=== PATIENT | male | born 1955 | race Caucasian/White ===

== ENCOUNTER → 2016-09-23 | Outpatient (CLI) | payer MEDICARE, OTHER ==
[~2016-09-23] MED LIST: /PANT40TA; /PANT40TA OR; /THIA10TA; ASPIRIN; BENA; BENADRYL TOP; BISA10SU2 PO; BISA10SU2 RE; COLA100C2; COLA100C2 OR; FOLI1TAB; FOLI1TAB OR; GABA600T3 OR; LEXAPRO PO; LIDO5DIS TD; MILKSUS OR; MULTIVIT; MULTIVIT OR; MULTIVIT PO; Metamucil PO; NICO21DI4; NICO21DI4 TD; PAIN325T OR; PERC5TAB8; PERC5TAB8 OR; RYZOLT PO; SENN8.6T5; SENNA-GEN OR; THIA100T OR; TRAM50TA2 OR
--- NOTE | 2016-09-24 02:41 | ECWPNPC ---
PATIENT NAME: DEMETRI FINLEY : 1955 GENDER: MALE VISIT DATE: 09/23/2016 DISCHARGE DATE: 09/23/16 1057 VISIT LOCKED DATE TIME: PHYSICIAN: LOU ROMERO RESOURCE: LOU ROMERO REASON FOR APPOINTMENT 1. FOLLOWUP HISTORY OF PRESENT ILLNESS HISTORY OF PRESENT ILLNESS: HERE FOR F/U MANAGEMENT OF CHRONIC LOW BACK PAIN.STATES PAIN HAS GRADUALLY RETURNED TO BASELINE.RATING PAIN VAS 4/10.DESCRIBES PAIN CONSTANT ACHING AND STABBING.HAS RESPONDED TO LUMBAR FACET THERAPEUTIC BLOCK IN PAST. FALL RISK SCREENING: SCREENING :NO FALLS IN THE PAST YEAR CURRENT MEDICATIONS TAKING MULTIVITAMINS CAPSULE 1 ORALLY ONCE A DAY, NOTES: YESTERDAY TAKING VITAMIN D (ERGOCALCIFEROL) 82413 UNIT CAPSULE 1 CAPSULE ORALLY ONCE EVERY 2 WEEKS TAKING GABAPENTIN 800 MG TABLET 1 TABLET ORALLY THREE TIMES A DAY TAKING PANTOPRAZOLE SODIUM 40 MG TABLET DELAYED RELEASE 1 TABLET ORALLY ONCE A DAY TAKING ATORVASTATIN CALCIUM 10 MG TABLET 1 TABLET ORALLY ONCE A DAY TAKING VIAGRA 100 MG TABLET 1/2-1 TABLET NEEDED ORALLY ONCE A DAY TAKING TRAMADOL HCL ER 200 MG TABLET EXTENDED RELEASE 24 HOUR 1 TABLET ORALLY ONCE A DAY MDD #1 CODE D MEDICATION LIST REVIEWED AND RECONCILED WITH THE PATIENT PAST MEDICAL HISTORY GUILLIAN BARRE VITAMIN D DEFICIENCY HYPERLIPIDEMIA DDD- LUMBAR WITH MILD DISC HERNIATION DEPRESSION CARPAL TUNNEL ALLERGIES N.K.D.A. SOCIAL HISTORY GENERAL: TOBACCO USE ARE YOU A:NONSMOKER LEARNING BARRIERS / SPECIAL NEEDS ORIENTED TO PLAN OF CARE: PATIENT, PAIN MANAGEMENT PATIENT, ORIENTED TO PLAN OF CARE: PATIENT, PAIN MANAGEMENT PATIENT. NEW PATIENT PAIN DIARY TODAY'S VISITNOTES FROM 0-10, WHAT LEVEL IS YOUR PAIN TODAY?0 PAIN CLINIC PFS, CLERGY, PUBLIC HEALTH REFERRALS PFS REFERRAL NEEDED?NO CLERGY REFERRAL NEEDED?NO PUBLIC HEALTH REFERRAL NEEDED?NO WAS THE PROVIDER NOTIFIED OF ANY PERTINENT INFO?NO PFS REFERRAL NEEDED?NO CLERGY REFERRAL NEEDED?NO PUBLIC HEALTH REFERRAL NEEDED?NO WAS THE PROVIDER NOTIFIED OF ANY PERTINENT INFO?NO REVIEW OF SYSTEMS CONSTITUTIONAL: ANY CHANGE IN YOUR MEDICAL CONDITION? NO . CHILLS NO . FEVER NO . INFECTION: DO YOU HAVE NEW INFECTIONS? NO . DO YOU HAVE HISTORY OF MRSA? NO . MUSCULOSKELETAL: ANY NEW PATTERNS OF PAIN OR NUMBNESS? YES PT HAD A LUMBAR FACET BLOCK 04/04/17, REPORTS HE HAD GOOD PAIN CONTROL WITH THIS, BUT THE PAIN HAS BEEN INCREASING GRADUALLY AND IS PRETTY CLOSE TO BASELINE, BUT STILL IS A A LITTLE BETTER THAN PRIOR TO PROCEDURE. HE ALSO REPORTS SOME NUMBNESS IN RIGHT LEG THAT OCCURS AFTER SITTING, THIS IS NEW OVER THE PAST SIX MONTHS. . GASTROENTEROLOGY: ANY NEW CHANGE IN BOWEL CONTROL? NO . GENITOURINARY: ANY NEW CHANGE IN BLADDER CONTROL? NO . IS THERE A CHANCE YOU COULD BE ? NO . HEMATOLOGY/LYMPH: DO YOU TAKE ANY BLOOD THINNERS? (FOR EXAMPLE- COUMADIN, PLAVIX, AGGRENOX, PLATEL, PRADAXA, OR XARELTO) NO . WHEN WAS YOUR LAST DOSE? DATE: TIME: . NEUROLOGY: HAVE YOU FALLEN IN THE PAST 6 MONTHS? NO . ANY NEW EXTREMITY NUMBNESS OR WEAKNESS? NO . CARDIOLOGY: DO YOU HAVE A PACEMAKER OR DEFIBRILLATOR? NO . RESPIRATORY: HAVE YOU BEEN SICK IN THE PAST WEEK? NO . FEVER NO . FLU LIKE SYMPTOMS? NO . COUGH NO . INTEGUMENTARY: DO YOU HAVE ANY RASHES OR OPEN SORES? NO . ALLERGIC/IMMUNO: ARE YOU ALLERGIC TO SHELLFISH OR IV DYE? NO . ANY NEW ALLERGIES? NO . PSYCHIATRIC: DO YOU HAVE THOUGHTS OF HURTING YOURSELF OR SOMEONE ELSE? NO . ARE YOU ABUSED, NEGLECTED, OR IN AN UNSAFE ENVIRONMENT? NO . ENDOCRINOLOGY: ARE YOU DIABETIC? NO . OTHER: DO YOU NEED ANY PRESCRIPTIONS? NO . IF YES, PLEASE LIST: ____ . ANY NEW PROBLEMS WITH YOUR MEDICATIONS? NO . WHEN DID YOU LAST EAT? ____ . WHEN DID YOU LAST DRINK? ____ . WHAT DID YOU LAST DRINK? ____ . NAME OF PERSON DRIVING YOU HOME? ____ . DO YOU HAVE ANY OTHER QUESTIONS OR CONCERNS NO . REVIEWED BY: PROVIDER: LOU LORENZ . VITAL SIGNS WT 221.6 LBS, HT 6'1", BMI 29.23 INDEX, BP 131/75 MM HG, HR 71 /MIN, RR 16 /MIN, TEMP 98.3 F, OXYGEN SAT % 95%, SAFE IN ENV? (Y/N) YES, NA INITIALS MD 09:59, REVIEWED BY: WILBUR. EXAMINATION LUMBAR SPINE/LOWER BACK: LOWER BACK:ROJM L/S SPINE FULL WITHOUT INCREASE IN PAIN. PALPATION:VERTEBRAL SPINE TENDERNESS.SPECIFIC TENDERNESS OVER LUMBAR FACET REGION BILAT.. MOTOR SYSTEM:5/5 BLE. SENSORY EXAM:NORMAL BILATERAL LE. GAIT:NORMAL. ASSESSMENTS CHRONIC BILATERAL LOW BACK PAIN WITHOUT SCIATICA - M54.5 (PRIMARY) LUMBAR DEGENERATIVE DISC DISEASE - M51.36 LUMBAR FACET ARTHROPATHY - M12.88 TREATMENT CHRONIC BILATERAL LOW BACK PAIN WITHOUT SCIATICA LUMBAR FACET LOU ANDERSEN 09/23/2016 10:41:14 AM > BILAT. L4/5-L5/S1 THERAPEUTIC FACET BLOCK NOTES: # 226 TOBACCO USE SCREENING/INTERVENTION: PATIENT CURRENTLY USED TOBACCO. WAS OFFERED SMOKING CESSATION FOR GUIDANCE IN QUITTING THROUGH THE [facility] QUITS PROGRAM AND THE [facility] CESSATION PROGRAM. , #128 - SCREENING BMI AND F/U PLAN IN : BMI ABOVE NORMAL TODAY. DISCUSSED WITH PATIENT NUTRITIONAL FOOD CHOICES TO ASSIST WITH WEIGHT LOSS. RECCOMMENDED REDUCING SALT, SUGAR, SODA INTAKE. RECOMMEND INCREASE ACTIVITY TO INCLUDE WALKING ON A REGULAR BASIS. PROFESSIONAL NUTRITIONAL NUTRITIONAL GUIDANCE WAS OFFERED AND WAS DECLINED. , PATIENT WAS ADVISED TO START A WALKING PROGRAM TO STRENGTHEN LUMBAR PARASPINAL MUSCLES AND IMPROVE MOBILITY. THEY WERE ADVISED THAT THIS WILL IMPROVE WEIGHT LOSS AND ALSO DEPRESSION/FIBROMYALGIA SYMPTOMS. ADVISED TO WALK 10 MINUTES EVERY OTHER DAY ON A FLAT SURFACE. EMPHASIZED THE IMPORTANCE OF DOING THIS CONSISTANTLY AND NOT SPORATICALLY TO AVOID INJURY. STRONG ADVISED NOT TO DO MORE THAN 10 MINUTES EVERY OTHER DSY FOR THE FIRST 4 WEEKS. LUMBAR FACET ARTHROPATHY LUMBAR FACET LEONORHEATHERHALLEYN 09/23/2016 10:41:14 AM > BILAT. L4/5-L5/S1 THERAPEUTIC FACET BLOCK PROCEDURE CODES FA211 ESTABILISHED PATIENT [facility] FACILITY CHARGE G8783 BP SCR PRFRM RCMDD DEFIND SCR INTVL G8730 PAIN ASSESS POS TOOL F/U PLAN DOC 3016F PT SCRND [place]HL[place] USE 0518F FALL PLAN OF CARE DOCD G8427 DOC MEDS VERIFIED W/PT OR RE G8417 BMI >=30 CALCUATE W/FOLLOWUP 3288F FALL RISK ASSESSMENT DOCD 4004F PT TOBACCO SCREEN RCVD TLK DISPOSITION & COMMUNICATION FOLLOW UP 2WK POST (REASON: BILAT L4/5-L5/S1 THERAPEUTIC FACET BLOCK) ELECTRONICALLY SIGNED BY KELECHI HANSEN ON 09/23/2016 AT 01:10 PM EDT DISCLAIMER : THIS IS A VISIT SUMMARY EXTRACTED FROM THE [employer] CHART. IT IS NOT A COPY OF THE [employer] PROGRESS NOTE. MTDD
== END ==
LOC: M PAIN 10:00
PROVIDERS: ATTEND Nurse Practitioner Family
DX: M54.5 Low back pain (principal); M51.36 Other intervertebral disc degeneration, lumbar region; M12.88 Other specific arthropathies, not elsewhere classified, other specified site; G89.29 Other chronic pain; Z79.891 Long term (current) use of opiate analgesic; E78.5 Hyperlipidemia, unspecified; K21.9 Gastro-esophageal reflux disease without esophagitis; E55.9 Vitamin D deficiency, unspecified

== ENCOUNTER → 2016-10-11 | Outpatient (CLI) | payer MEDICARE, OTHER ==
[~2016-10-11] MED LIST changes: +BUPIVACAINE HCL 0.25% 30 ML VIAL As Ordered ONE; +ISOVUE-M 300 61% 15ML VIAL (Q9967) As Ordered ONE; +LIDOCAINE 1% SDV INJ 30 ML VIAL As Ordered ONE; +TRIAMCINOLONE ACETONIDE SUSP 40 MG/ML VIAL (J3301) As Ordered ONE
--- NOTE | 2016-10-11 19:36 | REP ---
Partial lumbar spine series: Two views: History: Bilateral facet block injection for pain. 24 seconds of fluoroscopy time is reported. Findings: A sequence of two last image hold fluoroscopic spot radiographs of the lumbar spine document various needle positions and contrast injections associated with facet injection procedure. Signed by Berny Haney MD 10/12/2016 07:51 A
--- NOTE | 2016-10-23 00:09 | ECWPNPC ---
PATIENT NAME: DEMETRI FINLEY : 1955 GENDER: MALE VISIT DATE: 10/11/2016 DISCHARGE DATE: 10/11/16 1348 VISIT LOCKED DATE TIME: PHYSICIAN: ANAHY HANKINS RESOURCE: ANAHY HANKINS REASON FOR APPOINTMENT 1. LUMBAR FACET THERAPEUTIC HISTORY OF PRESENT ILLNESS HISTORY OF PRESENT ILLNESS: PAIN THE PATIENT DESCRIBES THE PAIN... FALL RISK SCREENING: SCREENING :NO FALLS IN THE PAST YEAR CURRENT MEDICATIONS TAKING MULTIVITAMINS CAPSULE 1 ORALLY ONCE A DAY, NOTES: 10/10/16@0700 TAKING VITAMIN D (ERGOCALCIFEROL) 79436 UNIT CAPSULE 1 CAPSULE ORALLY ONCE EVERY 2 WEEKS, NOTES: A WEEK AGO TAKING GABAPENTIN 800 MG TABLET 1 TABLET ORALLY THREE TIMES A DAY, NOTES: 10/11/16@0630 TAKING PANTOPRAZOLE SODIUM 40 MG TABLET DELAYED RELEASE 1 TABLET ORALLY ONCE A DAY, NOTES: 10/10/16@0700 TAKING ATORVASTATIN CALCIUM 10 MG TABLET 1 TABLET ORALLY ONCE A DAY, NOTES: @699 TAKING VIAGRA 100 MG TABLET 1/2-1 TABLET NEEDED ORALLY ONCE A DAY, NOTES: HASNT USED FOR AWHILE TAKING TRAMADOL HCL ER 200 MG TABLET EXTENDED RELEASE 24 HOUR 1 TABLET ORALLY ONCE A DAY MDD #1 CODE D, NOTES: 10/10/16@1999 MEDICATION LIST REVIEWED AND RECONCILED WITH THE PATIENT PAST MEDICAL HISTORY GUILLIAN BARRE VITAMIN D DEFICIENCY HYPERLIPIDEMIA DDD- LUMBAR WITH MILD DISC HERNIATION DEPRESSION CARPAL TUNNEL ALLERGIES N.K.D.A. SOCIAL HISTORY GENERAL: TOBACCO USE ARE YOU A:CURRENT SMOKER PATIENT COUNSELED ON THE DANGERS OF TOBACCO USE AND URGED TO QUIT:10/11/2016 ARE YOU INTERESTED IN QUITTING?THINKING ABOUT QUITTING COUNSELED THE PATIENT ON SMOKING CESSATION, EDUCATION [id number]/07/2017 PAIN CLINIC PFS, CLERGY, PUBLIC HEALTH REFERRALS CLERGY REFERRAL NEEDED?NO WAS THE PROVIDER NOTIFIED OF ANY PERTINENT INFO?NO PFS REFERRAL NEEDED?NO PUBLIC HEALTH REFERRAL NEEDED?NO PATIENT: ____. REVIEW OF SYSTEMS CONSTITUTIONAL: ANY CHANGE IN YOUR MEDICAL CONDITION? NO . CHILLS NO . FEVER NO . INFECTION: DO YOU HAVE NEW INFECTIONS? NO . DO YOU HAVE HISTORY OF MRSA? NO . MUSCULOSKELETAL: ANY NEW PATTERNS OF PAIN OR NUMBNESS? NO . GASTROENTEROLOGY: ANY NEW CHANGE IN BOWEL CONTROL? NO . GENITOURINARY: ANY NEW CHANGE IN BLADDER CONTROL? NO . IS THERE A CHANCE YOU COULD BE ? NO . HEMATOLOGY/LYMPH: DO YOU TAKE ANY BLOOD THINNERS? (FOR EXAMPLE- COUMADIN, PLAVIX, AGGRENOX, PLATEL, PRADAXA, OR XARELTO) NO . WHEN WAS YOUR LAST DOSE? DATE: TIME: . NEUROLOGY: HAVE YOU FALLEN IN THE PAST 6 MONTHS? NO . ANY NEW EXTREMITY NUMBNESS OR WEAKNESS? NO . CARDIOLOGY: DO YOU HAVE A PACEMAKER OR DEFIBRILLATOR? NO . RESPIRATORY: HAVE YOU BEEN SICK IN THE PAST WEEK? NO . FEVER NO . FLU LIKE SYMPTOMS? NO . COUGH NO . INTEGUMENTARY: DO YOU HAVE ANY RASHES OR OPEN SORES? NO . ALLERGIC/IMMUNO: ARE YOU ALLERGIC TO SHELLFISH OR IV DYE? NO . ANY NEW ALLERGIES? NO . PSYCHIATRIC: DO YOU HAVE THOUGHTS OF HURTING YOURSELF OR SOMEONE ELSE? NO . ARE YOU ABUSED, NEGLECTED, OR IN AN UNSAFE ENVIRONMENT? NO . ENDOCRINOLOGY: ARE YOU DIABETIC? NO . OTHER: DO YOU NEED ANY PRESCRIPTIONS? NO . IF YES, PLEASE LIST: ____ . ANY NEW PROBLEMS WITH YOUR MEDICATIONS? NO . WHEN DID YOU LAST EAT? ____10/10/16 . WHEN DID YOU LAST DRINK? ____10/10/16 . WHAT DID YOU LAST DRINK? ____PEPSI . NAME OF PERSON DRIVING YOU HOME? ____LEE FINLEY . DO YOU HAVE ANY OTHER QUESTIONS OR CONCERNS NO . REVIEWED BY: PROVIDER: . VITAL SIGNS WT 220 LBS, HT 6'1", BMI 29.02 INDEX, BP 120/69 MM HG, HR 70 /MIN, RR 16 /MIN, TEMP 97.9 F, OXYGEN SAT % 97, NA INITIALS AW 1059, REVIEWED BY: VD. ASSESSMENTS SPONDYLOSIS WITHOUT MYELOPATHY OR RADICULOPATHY, LUMBAR REGION - M47.816 (PRIMARY) SPONDYLOSIS WITHOUT MYELOPATHY OR RADICULOPATHY, LUMBOSACRAL REGION - M47.817 PROCEDURES PN LUMBAR FACET BLOCK THERAPEUTIC PRE PROCEDURE DIAGNOSIS LUMBAR SPONDYLOSIS, LUMBOSACRAL SPONDYLOSIS POST PROCEDURE DIAGNOSIS LUMBAR SPONDYLOSIS, LUMBOSACRAL SPONDYLOSIS PROCEDURE BILATERAL L4-L5 AND BILATERAL L5-S1 LUMBAR FACET THERAPEUTIC BLOCK SURGEON DR. ANAHY HANKINS DATA WAREHOUSING SPECIALIST NONE ANESTHESIA LOCAL PRE PROCEDURE NOTE THE PATIENT HAS A HISTORY OF CHRONIC LOW BACK PAIN. I EVALUATE THE PATIENT AND REVIEWED THE CHART. I WENT OVER THE RISKS, ALTERNATIVES, AND BENEFITS ASSOCIATED WITH THIS PROCEDURE. THE PATIENT WOULD LIKE TO PROCEED AND GIVE CONSENT TO PERFORMED THE PROCEDURE. THE PATIENT DENIES UNEXPLAINABLE WEIGHT LOSS, FEVER, CHILLS, OR NEW CHANGES IN URINARY OR BOWEL CONTROL DESCRIPTION OF PROCEDURE THE PATIENT WAS BROUGHT TO THE PROCEDURE ROOM AND PLACED IN THE PRONE POSITION. THE LUMBOSACRAL AREA WAS CLEANED WITH CHLORAPREP SOLUTION AND DRAPED ASEPTICALLY. THE PROCEDURE WAS DONE UNDER STERILE CONDITIONS. I CHECKED LATERALITY AND THE LEVEL WHERE THE PROCEDURE WAS GOING TO BE PERFORMED WITH THE PATIENT AND THE SUPPORTING STAFF AT THE MOMENT OF THE TIME OUT IN THE PROCEDURE ROOM. UNDER FLUOROSCOPIC GUIDANCE, THE TARGET POINT WAS SELECTED AT THE RIGHT AND LEFT L4-L5 AND RIGHT AND LEFT L5-S1 FACET JOINT. TARGET POINT WAS SELECTED AFTER LATERAL ROTATION AND TILT OF THE MAGNIFIER OF THE C-ARM. LIDOCAINE 0.5% WAS USED TO NUMB THE SKIN AND THE SUBCUTANEOUS TISSUE BELOW IT. SPINAL NEEDLES, 22-GAUGE, WERE ADVANCED UNDER FLUOROSCOPIC GUIDANCE AND FOLLOWING PATIENT FEEDBACK UNTIL THE TARGETS WERE TOUCHED. THE POSITION OF THE NEEDLES WAS VERIFIED WITH AP AND LATERAL VIEWS. AFTER PROPER POSITION OF THE NEEDLES WAS ACHIEVED, ISOVUE-M DYE 30% 0.1 ML WAS INJECTED SHOWING ADEQUATE SPREAD OF THE DYE. THEN A SOLUTION OF 1.9 ML OF BUPIVACAINE 0.125% OF KENALOG 10 MG WAS INJECTED AT EACH SITE. THERE WAS NO EVIDENCE OF BLOOD, PARESTHESIA OR CEREBROSPINAL FLUID DURING THE PROCEDURE. THE PATIENT WAS SENT TO THE RECOVERY ROOM. THE PATIENT WAS MOVING THE EXTREMITIES AND DOING WELL. THERE WAS NO COMPLICATION DURING THE PROCEDURE. FLUOROSCOPY TIME WAS 24 SECONDS POST PROCEDURE NOTE THE PATIENT WILL BE SEEN IN A FOLLOW UP IN THE NEXT FEW WEEKS. INSTRUCTIONS WERE GIVEN, QUESTIONS WERE ANSWERED, AND THE PATIENT EXPRESSED UNDERSTANDING AND AGREES WITH THE PLAN. I, HARMAN RODRIGUEZ, DOCUMENTED THE ABOVE INFORMATION ACTING A SCRIBE FOR DR. HANKINS. I HAVE REVIEWED THE ABOVE DOCUMENT, WRITTEN BY HARMAN RODRIGUEZ SCRIBMeghna AND I VERIFY THAT IT IS ACCURATE. DIAGNOSTIC IMAGING [facility] FACET BLOCK (PAIN)[id number] PROCEDURE CODES 47554 INJ PARAVERT F JNT L/S 1 LEV 94785 INJ PARAVERT F JNT L/S 2 LEV 6045F RADXPS IN END [id number] PXD DISPOSITION & COMMUNICATION FOLLOW UP 3 WEEKS ELECTRONICALLY SIGNED BY ANAHY HANKINS MD ON 10/22/2016 AT 08:33 PM EDT DISCLAIMER : THIS IS A VISIT SUMMARY EXTRACTED FROM THE [employer] CHART. IT IS NOT A COPY OF THE [employer] PROGRESS NOTE. MTDD
== END | disposition home or self-care (01) ==
LOC: M PAIN 11:00
PROVIDERS: ATTEND Anesthesiology
DX: G89.29 Other chronic pain (principal); M47.816 Spondylosis without myelopathy or radiculopathy, lumbar region; M47.817 Spondylosis without myelopathy or radiculopathy, lumbosacral region; E78.5 Hyperlipidemia, unspecified; F33.9 Major depressive disorder, recurrent, unspecified; E55.9 Vitamin D deficiency, unspecified; G61.0 Guillain-Barre syndrome; Z79.899 Other long term (current) drug therapy; Z79.891 Long term (current) use of opiate analgesic; F17.210 Nicotine dependence, cigarettes, uncomplicated
CPT/HCPCS: 64493; 64494; J3301; Q9967

== ENCOUNTER → 2016-10-28 | Outpatient (CLI) | payer MEDICARE, OTHER ==
[~2016-10-28] MED LIST changes: -BUPIVACAINE HCL 0.25% 30 ML VIAL As Ordered ONE; -ISOVUE-M 300 61% 15ML VIAL (Q9967) As Ordered ONE; -LIDOCAINE 1% SDV INJ 30 ML VIAL As Ordered ONE; -TRIAMCINOLONE ACETONIDE SUSP 40 MG/ML VIAL (J3301) As Ordered ONE
--- NOTE | 2016-10-29 01:11 | ECWPNPC ---
PATIENT NAME: DEMETRI FINLEY : 1955 GENDER: MALE VISIT DATE: 10/28/2016 DISCHARGE DATE: 10/28/16 1109 VISIT LOCKED DATE TIME: PHYSICIAN: LOU ROMERO RESOURCE: LOU ROMERO REASON FOR APPOINTMENT 1. POST PROC HISTORY OF PRESENT ILLNESS HISTORY OF PRESENT ILLNESS: HERE FOR POST PROCEDUREF/U.HAD BILAT.L4/5-L5/S1 THERAPEUTIC FACETBLOCK ON 10-10-16.REPORTS >50% IMPROVEMENT IN PAIN X10 DAYS THEN PAIN RETURNED TO BASELINE.RATING PAIN VAS 5/10.PAIN IS LOCATED CENTRAL LOW BACK AND TO THE RIGHT.DISCUSSED DIAGNOSTIC LUMBAR FACETS AND RADIOFREQUENCY PROCEDURE.HE WOULD LIKE TO WAIT UNTIL FALL TO CONSIDER MORE PROCEDURES. PAIN THE PATIENT DESCRIBES THE PAIN... FALL RISK SCREENING: SCREENING :NO FALLS IN THE PAST YEAR CURRENT MEDICATIONS TAKING TRAMADOL HCL ER 200 MG TABLET EXTENDED RELEASE 24 HOUR 1 TABLET ORALLY ONCE A DAY MDD #1 CODE D TAKING MULTIVITAMINS CAPSULE 1 ORALLY ONCE A DAY TAKING VITAMIN D (ERGOCALCIFEROL) 66736 UNIT CAPSULE 1 CAPSULE ORALLY ONCE EVERY 2 WEEKS TAKING GABAPENTIN 800 MG TABLET 1 TABLET ORALLY THREE TIMES A DAY TAKING PANTOPRAZOLE SODIUM 40 MG TABLET DELAYED RELEASE 1 TABLET ORALLY ONCE A DAY TAKING ATORVASTATIN CALCIUM 10 MG TABLET 1 TABLET ORALLY ONCE A DAY TAKING VIAGRA 100 MG TABLET 1/2-1 TABLET NEEDED ORALLY ONCE A DAY MEDICATION LIST REVIEWED AND RECONCILED WITH THE PATIENT PAST MEDICAL HISTORY GUILLIAN BARRE VITAMIN D DEFICIENCY HYPERLIPIDEMIA DDD- LUMBAR WITH MILD DISC HERNIATION DEPRESSION CARPAL TUNNEL ALLERGIES N.K.D.A. SOCIAL HISTORY GENERAL: TOBACCO USE ARE YOU A:CURRENT SMOKER HOW MANY CIGARETTES A DAY DO YOU SMOKE?11-20 HOW SOON AFTER YOU WAKE UP DO YOU SMOKE YOUR FIRST CIGARETTE?WITHIN 5 MIN HOW OFTEN DO YOU SMOKE CIGARETTES?EVERY DAY PATIENT COUNSELED ON THE DANGERS OF TOBACCO USE AND URGED TO QUIT:10/28/2016 ARE YOU INTERESTED IN QUITTING?NOT READY TO QUIT COUNSELED THE PATIENT ON SMOKING EFFECTS, EDUCATION [id number]/24/2017 PAIN CLINIC PFS, CLERGY, PUBLIC HEALTH REFERRALS CLERGY REFERRAL NEEDED?NO WAS THE PROVIDER NOTIFIED OF ANY PERTINENT INFO?NO PFS REFERRAL NEEDED?NO PUBLIC HEALTH REFERRAL NEEDED?NO PATIENT: ____. REVIEW OF SYSTEMS CONSTITUTIONAL: ANY CHANGE IN YOUR MEDICAL CONDITION? NO . CHILLS NO . FEVER NO . INFECTION: DO YOU HAVE NEW INFECTIONS? NO . DO YOU HAVE HISTORY OF MRSA? NO . MUSCULOSKELETAL: ANY NEW PATTERNS OF PAIN OR NUMBNESS? NO . GASTROENTEROLOGY: ANY NEW CHANGE IN BOWEL CONTROL? NO . GENITOURINARY: ANY NEW CHANGE IN BLADDER CONTROL? NO . IS THERE A CHANCE YOU COULD BE ? NO . HEMATOLOGY/LYMPH: DO YOU TAKE ANY BLOOD THINNERS? (FOR EXAMPLE- COUMADIN, PLAVIX, AGGRENOX, PLATEL, PRADAXA, OR XARELTO) NO . WHEN WAS YOUR LAST DOSE? DATE: TIME: . NEUROLOGY: HAVE YOU FALLEN IN THE PAST 6 MONTHS? NO . ANY NEW EXTREMITY NUMBNESS OR WEAKNESS? NO . CARDIOLOGY: DO YOU HAVE A PACEMAKER OR DEFIBRILLATOR? NO . RESPIRATORY: HAVE YOU BEEN SICK IN THE PAST WEEK? NO . FEVER NO . FLU LIKE SYMPTOMS? NO . COUGH NO . INTEGUMENTARY: DO YOU HAVE ANY RASHES OR OPEN SORES? NO . ALLERGIC/IMMUNO: ARE YOU ALLERGIC TO SHELLFISH OR IV DYE? NO . ANY NEW ALLERGIES? NO . PSYCHIATRIC: DO YOU HAVE THOUGHTS OF HURTING YOURSELF OR SOMEONE ELSE? NO . ARE YOU ABUSED, NEGLECTED, OR IN AN UNSAFE ENVIRONMENT? NO . ENDOCRINOLOGY: ARE YOU DIABETIC? NO . OTHER: DO YOU NEED ANY PRESCRIPTIONS? NO . IF YES, PLEASE LIST: ____ . ANY NEW PROBLEMS WITH YOUR MEDICATIONS? NO . WHEN DID YOU LAST EAT? ____ . WHEN DID YOU LAST DRINK? ____ . WHAT DID YOU LAST DRINK? ____ . NAME OF PERSON DRIVING YOU HOME? ____ . DO YOU HAVE ANY OTHER QUESTIONS OR CONCERNS NO . REVIEWED BY: PROVIDER: LOU LORENZ . VITAL SIGNS WT 213 LBS, HT 6'1", BMI 28.10 INDEX, BP 158/72 MM HG, HR 57 /MIN, RR 16 /MIN, TEMP 97.6 F, OXYGEN SAT % 97%, NA INITIALS SC 10:19, REVIEWED BY: AD. EXAMINATION LUMBAR SPINE/LOWER BACK: LOWER BACK:ROJM L/S SPINE FULL WITHOUT INCREASE IN PAIN. PALPATION:VERTEBRAL SPINE TENDERNESS.SPECIFIC TENDERNESS OVER LUMBAR FACET REGION BILAT.. MOTOR SYSTEM:5/5 BLE. SENSORY EXAM:NORMAL BILATERAL LE. GAIT:NORMAL. 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 IT IS NOT A COPY OF THE [employer] PROGRESS NOTE. JEANNINED
== END | disposition home or self-care (01) ==
LOC: M PAIN 10:20
PROVIDERS: ATTEND Nurse Practitioner Family
DX: G89.29 Other chronic pain (principal); M54.5 Low back pain; M51.36 Other intervertebral disc degeneration, lumbar region; M12.88 Other specific arthropathies, not elsewhere classified, other specified site; E55.9 Vitamin D deficiency, unspecified; E78.5 Hyperlipidemia, unspecified; G61.0 Guillain-Barre syndrome; F33.9 Major depressive disorder, recurrent, unspecified; Z79.899 Other long term (current) drug therapy; F17.210 Nicotine dependence, cigarettes, uncomplicated

== ENCOUNTER → 2018-06-08 | Outpatient (REF) | payer MEDICARE, OTHER ==
[2018-06-08 12:12] LABS: BASO # 0.1 10^3/uL (0.0-0.2); BASO % 1.4 % (0.0-1.0); EOS # 0.4 10^3/uL (0.0-0.50); EOS % 4.1 % (0.0-3.0); HEMATOCRIT 45.7 % (42.0-52.0); HEMOGLOBIN 15.8 g/dl (13.5-17.5); IMMATURE GRANULOCYTE % 0.2 % (0-3.0); LYMPH # 4.4 10^3/uL (1.5-4.5); LYMPH % 49.7 % (24.0-44.0); MEAN CORPUSCULAR HEMOGLOBIN 31.4 pg (27.0-33.0); MEAN CORPUSCULAR HGB CONC 34.6 g/dl (32.0-36.5); MEAN CORPUSCULAR VOLUME 90.9 fl (80.0-96.0); MONO # 0.9 10^3/uL (0.0-0.8); NEUTROPHILS % 34.6 % (36.0-66.0); PLATELET COUNT, AUTOMATED 275 10^3/uL (150-450); RED BLOOD COUNT 5.03 10^6/uL (4.30-6.10); RED CELL DISTRIBUTION WIDTH 12.1 % (11.5-14.5); WHITE BLOOD COUNT 8.8 10^3/uL (4.0-10.0)
[2018-06-08 12:24] LABS: ALBUMIN 4.1 GM/DL (3.2-5.2); ALBUMIN/GLOBULIN RATIO 1.21 (1.00-1.93); ALKALINE PHOSPHATASE 103 U/L (45-117); ALT/SGPT 43 U/L (12-78); ANION GAP 5 MEQ/L (8-16); AST/SGOT 23 U/L (7-37); BILIRUBIN,TOTAL 0.5 MG/DL (0.2-1.0); BLOOD UREA NITROGEN 24 MG/DL (7-18); C REACTIVE PROTEIN QUANTITATIV 0.42 MG/DL (0.00-0.30); CALCIUM LEVEL 9.1 MG/DL (8.8-10.2); CARBON DIOXIDE LEVEL 28 MEQ/L (21-32); CHLORIDE LEVEL 104 MEQ/L (98-107); CREATININE FOR GFR 1.05 MG/DL (0.70-1.30); GLOMERULAR FILTRATION RATE > 60.0 (>49); GLUCOSE, FASTING 109 MG/DL (70-100); MAGNESIUM LEVEL 1.9 MG/DL (1.8-2.4); POTASSIUM SERUM 4.5 MEQ/L (3.5-5.1); RHEUMATOID FACTOR QUANT < 10.0 IU/ML (<15.0); SODIUM LEVEL 137 MEQ/L (136-145); TOTAL PROTEIN 7.5 GM/DL (6.4-8.2)
[2018-06-08 12:59] LABS: ERYTHROCYTE SEDIMENTATION RATE 2 mm/hr (0-20)
[2018-06-11 00:07] LABS: CYCLIC CITRULLINATED PEPTIDE 5 units (0-19)
[2018-06-11 00:07] LABS: ANA (HEP2) Negative (.); Lyme Disease IgG Ab 18 kDa Ban Absent (.); Lyme Disease IgG Ab 23 kDa Ban Absent (.); Lyme Disease IgG Ab 28 kDa Ban Absent (.); Lyme Disease IgG Ab 30 kDa Ban Absent (.); Lyme Disease IgG Ab 39 kDa Ban Absent (.); Lyme Disease IgG Ab 41 kDa Ban Absent (.); Lyme Disease IgG Ab 45 kDa Ban Absent (.); Lyme Disease IgG Ab 58 kDa Ban Absent (.); Lyme Disease IgG Ab 66 kDa Ban Absent (.); Lyme Disease IgG Ab 93 kDa Ban Absent (.); Lyme Disease IgG West Blot Int Negative (.); Lyme Disease IgG/IgM Antibodie <0.91 ISR (0.00-0.90); Lyme Disease IgM Ab 23 kDa Ban Absent (.); Lyme Disease IgM Ab 39 kDa Ban Absent (.); Lyme Disease IgM Ab 41 kDa Ban Absent (.); Lyme Disease IgM West Blot Int Negative (.); VITAMIN D 1,25 DIHYDROXY 61.2 pg/mL (19.9-79.3)
== END ==
LOC: M SFHCCLAY 08:17
DX: E78.5 Hyperlipidemia, unspecified (principal); M25.50 Pain in unspecified joint; M79.10 Myalgia, unspecified site; R20.3 Hyperesthesia; E55.9 Vitamin D deficiency, unspecified
CPT/HCPCS: 83735

== ENCOUNTER → 2019-02-15 | Outpatient (CLI) | payer MEDICARE ==
[~2019-02-15] MED LIST changes: -/PANT40TA; -/PANT40TA OR; +LEXA1TAB PO; -LEXAPRO PO; +MEDR4PAK PO; +PROT1TAB2; +PROT1TAB2 OR; +ROBA500T PO; +VITA1TAB27 PO
--- NOTE | 2019-02-15 16:48 | REP ---
REASON FOR EXAM: Chest pain. COMPARISON: Portable exam obtained 12/07/2014. There is a 1.6 cm sized density in the right paratracheal region representing a change. It may be at least partially calcified representing chronic change. The heart is not enlarged and lung bush are otherwise clear. The pleural angles are sharp. Mild chronic changes are seen involving the imaged osseous structures. IMPRESSION:Small right paratracheal density as described above. Most likely benign, however, representing a change from the prior exam. Review of the latest prior CT of the chest of 06/23/2015 showed no abnormality in that region. Consider repeat chest CT so it can be compared to the prior exam. Electronically Signed by Yosvany Christopher DO 02/15/2019 04:51 P
== END ==
LOC: M CLY 13:53
PROVIDERS: ATTEND Family Medicine
DX: R91.8 Other nonspecific abnormal finding of lung field (principal); R07.89 Other chest pain
CPT/HCPCS: 71046; 93005; G0463

== ENCOUNTER → 2019-02-22 | Outpatient (CLI) | payer MEDICARE, BC, OTHER ==
--- NOTE | 2019-02-22 16:16 | REP ---
REASON: Followup right paratracheal density seen on prior plain film examination of 02/15/2019 which was reviewed. The latest prior chest CT for comparison 06/23/2015. The lack of intravenous contrast decreases the sensitivity of the exam. Multiple nonenlarged mediastinal lymph nodes are noted status quo. There is no gross change in the appearance of the pulmonary aldo. There is no evidence of adenopathy. There is mild ectasia of the left brachial cephalic vein and superior vena cava representing a change from the prior exam and likely representing the plain finding. There are no pleural or pericardial effusions. The imaged upper abdomen shows diffuse low density throughout the hepatic parenchyma. This represents a change from the prior exam. Bone window technique throughout the exam shows chronic spinal degenerative changes status quo. Evaluation of the lung bush shows stable appearing biapical pleural parenchymal scarring. Right basilar pleural based nodules are noted status quo. No new abnormal nodules, masses, or opacities have developed. IMPRESSION:1. Vascular ectasia, as described above, likely representing the plain film finding. 2. There are some chronic lung field changes with pleural based nodules all stable and without evidence of a new abnormal nodule. 3. There is fatty infiltration of the liver which has developed since the last exam. 4. Other findings as described above. Electronically Signed by Yosvany Christopher DO 02/22/2019 04:49 P
== END ==
LOC: M RAD 09:22
PROVIDERS: ATTEND Family Medicine
DX: R91.8 Other nonspecific abnormal finding of lung field (principal)

== ENCOUNTER → 2019-05-28 | Outpatient (CLI) | payer MEDICARE, BC, OTHER ==
--- NOTE | 2019-05-29 00:07 | ECGEPIP ---
[facility] Test Date: 2019-05-28 Pat Name: DEMETRI FINLEY Department: Room: - Gender: Male Booking Manager: VÍCTOR : 1955 Requested By: Corky Stanley Order Number: [id number] Reading MD: Hubert Reyes Measurements Intervals [place] Rate: 74 P: 60 NH: 165 QRS: 13 QRSD: 80 T: 43 QT: 358 QTc: 399 Interpretive Statements SINUS RHYTHM COMPARED TO THE LAST 2 TRACINGS, NO REMARKABLE CHANGES BUT SLIGHTLY FASTER HEART RATE Electronically Signed on 05-29-2019 0:07:07 EST by Hubert Reyes
== END ==
LOC: M LAB 13:27
PROVIDERS: ATTEND Orthopaedic Surgery
DX: Z01.818 Encounter for other preprocedural examination (principal)

== ENCOUNTER → 2019-06-01 | Outpatient (REF) | payer MEDICARE, OTHER ==
[2019-06-01 13:11] LABS: ALBUMIN 4.3 GM/DL (3.2-5.2); ALT/SGPT 59 U/L (12-78); BLOOD UREA NITROGEN 19 MG/DL (7-18); CALCIUM LEVEL 9.5 MG/DL (8.8-10.2); CARBON DIOXIDE LEVEL 29 MEQ/L (21-32); CHLORIDE LEVEL 99 MEQ/L (98-107); CHOLESTEROL LEVEL 163 MG/DL (<200); CHOLESTEROL RISK RATIO 4.179 (<5); CREATININE FOR GFR 1.17 MG/DL (0.70-1.30); GLOMERULAR FILTRATION RATE > 60.0 (>49); GLUCOSE, FASTING 106 MG/DL (70-100); HDL CHOLESTEROL 39 MG/DL (>40); LDL CHOLESTEROL 101 MG/DL (<100); NON-HDL-C 124 MG/DL; POTASSIUM SERUM 4.9 MEQ/L (3.5-5.1); SODIUM LEVEL 136 MEQ/L (136-145); TOTAL PROTEIN 8.1 GM/DL (6.4-8.2); TRIGLYCERIDES LEVEL 115 MG/DL (<150)
== END ==
LOC: M SFHCCLAY 09:15
PROVIDERS: ATTEND Family Medicine
DX: E78.5 Hyperlipidemia, unspecified (principal)
CPT/HCPCS: 80053; 80061; G0463

== ENCOUNTER → 2019-06-11 | Outpatient (REF) | payer MEDICARE, OTHER | LOC: M SFHCCLAY 16:07 | PROVIDERS: ATTEND Family Medicine | DX: L98.9 Disorder of the skin and subcutaneous tissue, unspecified (principal); Z53.8 Procedure and treatment not carried out for other reasons | CPT/HCPCS: 11106; 88305; G0463 ==

== ENCOUNTER → 2019-07-12 | Outpatient (REF) | payer MEDICARE, OTHER ==
[2019-07-12 17:59] LABS: BASO # 0.1 10^3/uL (0.0-0.2); BASO % 0.8 % (0.0-1.0); EOS # 0.2 10^3/uL (0.0-0.5); EOS % 1.6 % (0.0-3.0); HEMATOCRIT 47.3 % (42.0-52.0); HEMOGLOBIN 15.6 g/dl (13.5-17.5); LYMPH # 4.4 10^3/uL (1.5-5.0); LYMPH % 40.3 % (24.0-44.0); MEAN CORPUSCULAR HEMOGLOBIN 30.4 pg (27.0-33.0); NEUTROPHILS # 5.3 10^3/uL (1.5-8.5); NEUTROPHILS % 47.8 % (36.0-66.0); PLATELET COUNT, AUTOMATED 266 10^3/uL (150-450); RED BLOOD COUNT 5.14 10^6/uL (4.30-6.10)
[2019-07-12 18:02] LABS: C REACTIVE PROTEIN QUANTITATIV 0.52 MG/DL (0.00-0.30); RHEUMATOID FACTOR QUANT < 10.0 IU/ML (<15.0)
[2019-07-12 18:25] LABS: ERYTHROCYTE SEDIMENTATION RATE 5 mm/hr (0-20)
== END ==
LOC: M LABDRAWC 17:11
PROVIDERS: ATTEND Physician Assistant
DX: M51.36 Other intervertebral disc degeneration, lumbar region (principal)

== ENCOUNTER → 2019-12-20 | Outpatient (REF) | payer MEDICARE, BC, OTHER ==
[2019-12-20 17:15] LABS: BASO # 0.1 10^3/uL (0.0-0.2); BASO % 1.2 % (0.0-1.0); EOS # 0.3 10^3/uL (0.0-0.5); HEMATOCRIT 42.9 % (42.0-52.0); HEMOGLOBIN 14.5 g/dl (13.5-17.5); MEAN CORPUSCULAR HEMOGLOBIN 31.3 pg (27.0-33.0); MEAN CORPUSCULAR HGB CONC 33.8 g/dl (32.0-36.5); MEAN CORPUSCULAR VOLUME 92.5 fl (80.0-96.0); MONO # 0.9 10^3/uL (0.0-0.8); NEUTROPHILS # 3.3 10^3/uL (1.5-8.5); NEUTROPHILS % 38.6 % (36.0-66.0); PLATELET COUNT, AUTOMATED 268 10^3/uL (150-450); RED BLOOD COUNT 4.64 10^6/uL (4.30-6.10); WHITE BLOOD COUNT 8.6 10^3/uL (4.0-10.0)
[2019-12-20 18:07] LABS: ALBUMIN 3.9 GM/DL (3.2-5.2); ALT/SGPT 41 U/L (12-78); BILIRUBIN,TOTAL 0.8 MG/DL (0.2-1.0); BLOOD UREA NITROGEN 20 MG/DL (7-18); C REACTIVE PROTEIN QUANTITATIV 0.64 MG/DL (0.00-0.30); CALCIUM LEVEL 8.8 MG/DL (8.8-10.2); CARBON DIOXIDE LEVEL 29 MEQ/L (21-32); CHLORIDE LEVEL 104 MEQ/L (98-107); CREATININE FOR GFR 0.91 MG/DL (0.70-1.30); GLOMERULAR FILTRATION RATE > 60.0 (>49); GLUCOSE, FASTING 95 MG/DL (70-100); POTASSIUM SERUM 4.6 MEQ/L (3.5-5.1); SODIUM LEVEL 138 MEQ/L (136-145); TOTAL PROTEIN 7.2 GM/DL (6.4-8.2)
[2019-12-23 00:07] LABS: ANA (HEP2) Negative (.); CYCLIC CITRULLINATED PEPTIDE 4 units (0-19); H PYLORI SERUM QUANT IGA <9.0 units (0.0-8.9); H PYLORI SERUM QUANT IGM 34.3 units (0.0-8.9); H PYLORI SERUM QUANT IgG ABY 0.64 (0.00-0.79)
== END ==
LOC: M SFHCCLAY 10:36
PROVIDERS: ATTEND Family Medicine
DX: R07.89 Other chest pain (principal); K21.9 Gastro-esophageal reflux disease without esophagitis; M79.10 Myalgia, unspecified site; R53.83 Other fatigue
CPT/HCPCS: 80053; 84443; 85025; 86038; 86140; 86200; 86677; G0463

== ENCOUNTER → 2020-01-14 | Outpatient (REF) | payer MEDICARE, OTHER ==
[2020-01-14 11:32] LABS: PLATELET COUNT, AUTOMATED 260 10^3/uL (150-450)
[2020-01-14 11:42] LABS: INR 0.98; PROTHROMBIN TIME 12.7 SECONDS (11.8-14.0)
[2020-01-14 11:53] LABS: COLLAGEN EPINEPHRINE 94 SECONDS (74-162)
== END ==
LOC: M LABDRAWC 10:56
PROVIDERS: ATTEND Physical Medicine & Rehabilitation
DX: M51.36 Other intervertebral disc degeneration, lumbar region (principal)

== ENCOUNTER → 2020-03-01 | Outpatient (CLI) | payer MEDICARE, BC, OTHER | LOC: M LABSMTC 10:23 | PROVIDERS: ATTEND Physical Medicine & Rehabilitation | DX: Z03.818 Encounter for observation for suspected exposure to other biological agents ruled out (principal); Z11.59 Encounter for screening for other viral diseases | CPT/HCPCS: C9803; U0003 ==

== ENCOUNTER → 2020-05-03 | Outpatient (CLI) | payer MEDICARE, BC, OTHER | LOC: M LABSMTC 09:45 | PROVIDERS: ATTEND Physical Medicine & Rehabilitation | DX: Z01.818 Encounter for other preprocedural examination (principal) ==

== ENCOUNTER → 2020-06-26 | Outpatient (REF) | payer MEDICARE, OTHER ==
[2020-06-26 16:45] LABS: BASO # 0.1 10^3/uL (0.0-0.2); BASO % 1.1 % (0.0-1.0); EOS # 0.3 10^3/uL (0.0-0.5); EOS % 2.6 % (0.0-3.0); HEMATOCRIT 45.2 % (42.0-52.0); HEMOGLOBIN 14.6 g/dl (13.5-17.5); LYMPH # 4.4 10^3/uL (1.5-5.0); LYMPH % 43.2 % (24.0-44.0); MEAN CORPUSCULAR HEMOGLOBIN 30.2 pg (27.0-33.0); MEAN CORPUSCULAR HGB CONC 32.3 g/dl (32.0-36.5); MEAN CORPUSCULAR VOLUME 93.6 fl (80.0-96.0); MONO % 9.6 % (0.0-5.0); NEUTROPHILS # 4.4 10^3/uL (1.5-8.5); NEUTROPHILS % 43.2 % (36.0-66.0); PLATELET COUNT, AUTOMATED 253 10^3/uL (150-450); RED BLOOD COUNT 4.83 10^6/uL (4.30-6.10); WHITE BLOOD COUNT 10.1 10^3/uL (4.0-10.0)
[2020-06-26 17:00] LABS: ALBUMIN 4.1 GM/DL (3.2-5.2); ALT/SGPT 55 U/L (12-78); BILIRUBIN,TOTAL 0.6 MG/DL (0.2-1.0); BLOOD UREA NITROGEN 17 MG/DL (7-18); CALCIUM LEVEL 9.6 MG/DL (8.8-10.2); CARBON DIOXIDE LEVEL 31 MEQ/L (21-32); CHLORIDE LEVEL 105 MEQ/L (98-107); CHOLESTEROL LEVEL 153 MG/DL (<200); CHOLESTEROL RISK RATIO 3.731 (<5); CREATININE FOR GFR 1.04 MG/DL (0.70-1.30); GLOMERULAR FILTRATION RATE > 60.0 (>49); GLUCOSE, FASTING 99 MG/DL (70-100); HDL CHOLESTEROL 41 MG/DL (>40); LDL CHOLESTEROL 92 MG/DL (<100); NON-HDL-C 112 MG/DL; POTASSIUM SERUM 4.6 MEQ/L (3.5-5.1); SODIUM LEVEL 140 MEQ/L (136-145); TOTAL PROTEIN 7.3 GM/DL (6.4-8.2); TRIGLYCERIDES LEVEL 102 MG/DL (<150)
== END ==
LOC: M SFHCCLAY 10:22
PROVIDERS: ATTEND Family Medicine
DX: E78.5 Hyperlipidemia, unspecified (principal); Z12.5 Encounter for screening for malignant neoplasm of prostate; K21.9 Gastro-esophageal reflux disease without esophagitis; E55.9 Vitamin D deficiency, unspecified; M79.10 Myalgia, unspecified site; R53.83 Other fatigue
CPT/HCPCS: 80053; 80061; 82652; 83735; 85025; G0103; G0463

== ENCOUNTER → 2020-09-28 | Outpatient (REF) | payer MEDICARE, OTHER | LOC: M SFHCCLAY 15:53 | PROVIDERS: ATTEND Family Medicine | DX: D23.71 Other benign neoplasm of skin of right lower limb, including hip (principal) | CPT/HCPCS: 11106; 88305; G0463 ==

== ENCOUNTER → 2021-06-12 | Outpatient (REF) | payer MEDICARE, OTHER ==
[2021-06-12 16:28] LABS: ALBUMIN 4.1 GM/DL (3.2-5.2); ALT/SGPT 42 U/L (12-78); BILIRUBIN,TOTAL 0.4 MG/DL (0.2-1.0); BLOOD UREA NITROGEN 21 MG/DL (7-18); CALCIUM LEVEL 9.2 MG/DL (8.8-10.2); CARBON DIOXIDE LEVEL 29 MEQ/L (21-32); CHLORIDE LEVEL 106 MEQ/L (98-107); CHOLESTEROL LEVEL 147 MG/DL (<200); GLOMERULAR FILTRATION RATE > 60.0 (>49); GLUCOSE, FASTING 103 MG/DL (70-100); HDL CHOLESTEROL 44 MG/DL (>40); LDL CHOLESTEROL 83 MG/DL (<100); MAGNESIUM LEVEL 2.1 MG/DL (1.8-2.4); NON-HDL-C 103 MG/DL; POTASSIUM SERUM 4.6 MEQ/L (3.5-5.1); SODIUM LEVEL 140 MEQ/L (136-145); TOTAL PROTEIN 7.7 GM/DL (6.4-8.2); TRIGLYCERIDES LEVEL 98 MG/DL (<150)
== END ==
LOC: M SFHCCLAY 09:56
PROVIDERS: ATTEND Family Medicine
DX: E78.5 Hyperlipidemia, unspecified (principal); K21.9 Gastro-esophageal reflux disease without esophagitis; E55.9 Vitamin D deficiency, unspecified

== ENCOUNTER → 2021-10-10 | Outpatient (CLI) | payer MEDICARE, OTHER | LOC: M CLY 13:39 | PROVIDERS: ATTEND Physician Assistant | DX: M79.672 Pain in left foot (principal) ==

== ENCOUNTER → 2021-12-07 | Outpatient (REF) | payer MEDICARE, OTHER ==
[2021-12-07 12:41] LABS: BASO # 0.1 10^3/uL (0.0-0.2); BASO % 0.8 % (0.0-1.0); EOS # 0.3 10^3/uL (0.0-0.5); EOS % 3.1 % (0.0-3.0); HEMATOCRIT 41.8 % (42.0-52.0); HEMOGLOBIN 14.1 g/dl (13.5-17.5); LYMPH # 3.5 10^3/uL (1.5-5.0); LYMPH % 42.4 % (24.0-44.0); MEAN CORPUSCULAR HEMOGLOBIN 30.5 pg (27.0-33.0); MEAN CORPUSCULAR HGB CONC 33.7 g/dl (32.0-36.5); MEAN CORPUSCULAR VOLUME 90.3 fl (80.0-96.0); MONO % 12.4 % (2.0-8.0); NEUTROPHILS # 3.4 10^3/uL (1.5-8.5); NEUTROPHILS % 41.1 % (36.0-66.0); PLATELET COUNT, AUTOMATED 289 10^3/uL (150-450); RED BLOOD COUNT 4.63 10^6/uL (4.30-6.10); WHITE BLOOD COUNT 8.3 10^3/uL (4.0-10.0)
[2021-12-07 13:45] LABS: THYROID STIMULATING HORMONE 1.11 uIU/ML (0.358-3.740); TOTAL T3 107.1 NG/DL (60.0-181.0)
== END ==
LOC: M SFHCCLAY 09:12
PROVIDERS: ATTEND Family Medicine
DX: R53.83 Other fatigue (principal); R20.3 Hyperesthesia; S30.861S Insect bite (nonvenomous) of abdominal wall, sequela; W57.XXXS Bitten or stung by nonvenomous insect and other nonvenomous arthropods, sequela; D04.9 Carcinoma in situ of skin, unspecified

== ENCOUNTER → 2022-09-27 | Outpatient (REF) | payer MEDICARE, OTHER ==
[2022-09-27 17:51] LABS: BASO # 0.1 10^3/uL (0.0-0.2); BASO % 0.9 % (0.0-1.0); EOS # 0.3 10^3/uL (0.0-0.5); HEMATOCRIT 44.8 % (42.0-52.0); HEMOGLOBIN 14.9 g/dl (13.5-17.5); LYMPH # 3.4 10^3/uL (1.5-5.0); LYMPH % 37.2 % (24.0-44.0); MEAN CORPUSCULAR HGB CONC 33.3 g/dl (32.0-36.5); MEAN CORPUSCULAR VOLUME 93.3 fl (80.0-96.0); MONO % 10.8 % (2.0-8.0); NEUTROPHILS # 4.4 10^3/uL (1.5-8.5); NEUTROPHILS % 47.9 % (36.0-66.0); PLATELET COUNT, AUTOMATED 268 10^3/uL (150-450); WHITE BLOOD COUNT 9.1 10^3/uL (4.0-10.0)
[2022-09-27 18:14] LABS: LIPASE 24 U/L (12-53)
[2022-09-27 18:16] LABS: ALKALINE PHOSPHATASE 125 U/L (46-116); ALT/SGPT 48 U/L (7.0-40); AST/SGOT 28 U/L (<34); BILIRUBIN,TOTAL 0.6 MG/DL (0.3-1.2); BLOOD UREA NITROGEN 19 MG/DL (9-23); CARBON DIOXIDE LEVEL 32 MMOL/L (20-31); CHLORIDE LEVEL 102 MMOL/L (98-107); CREATININE FOR GFR 0.89 MG/DL (0.70-1.30); GLOMERULAR FILTRATION RATE > 60.0 (>49); GLUCOSE, FASTING 102 MG/DL (74-106); IRON (FE) 145 UG/DL (65-175); MAGNESIUM LEVEL 1.9 MG/DL (1.8-2.4); POTASSIUM SERUM 4.8 MMOL/L (3.5-5.1); SODIUM LEVEL 138 MMOL/L (136-145); THYROID STIMULATING HORMONE 1.274 uIU/ML (0.55-4.78)
== END ==
LOC: M SFHCCLAY 10:45
PROVIDERS: ATTEND Family Medicine
DX: E78.5 Hyperlipidemia, unspecified (principal); R53.83 Other fatigue; K21.9 Gastro-esophageal reflux disease without esophagitis; E55.9 Vitamin D deficiency, unspecified; R20.3 Hyperesthesia

== ENCOUNTER → 2023-06-03 | Outpatient (CLI) | payer MEDICARE, OTHER, BC | LOC: M RAD 08:31 | PROVIDERS: ATTEND Family Medicine | DX: F17.210 Nicotine dependence, cigarettes, uncomplicated (principal) ==

== ENCOUNTER → 2023-08-18 | Outpatient (REF) | payer MEDICARE, OTHER ==
[2023-08-18 18:59] LABS: MEAN CORPUSCULAR HEMOGLOBIN 31.3 pg (27.0-33.0); MEAN CORPUSCULAR HGB CONC 33.3 g/dl (32.0-36.5); MEAN CORPUSCULAR VOLUME 93.8 fl (80.0-96.0); PLATELET COUNT, AUTOMATED 247 10^3/uL (150-450); WHITE BLOOD COUNT 9.1 10^3/uL (4.0-10.0)
[2023-08-18 19:28] LABS: ALBUMIN 3.8 G/DL (3.2-5.2); ALKALINE PHOSPHATASE 112 U/L (46-116); ALT/SGPT 33 U/L (7.0-40); AST/SGOT 21 U/L (<34); BILIRUBIN,TOTAL 0.8 MG/DL (0.3-1.2); BLOOD UREA NITROGEN 18 MG/DL (9-23); CALCIUM LEVEL 9.3 MG/DL (8.3-10.6); CARBON DIOXIDE LEVEL 29 MMOL/L (20-31); CHLORIDE LEVEL 104 MMOL/L (98-107); CHOLESTEROL LEVEL 149 MG/DL (<200); CHOLESTEROL RISK RATIO 4.09 (<5); CREATININE FOR GFR 1.06 MG/DL (0.70-1.30); GLOMERULAR FILTRATION RATE > 60.0 (>49); GLUCOSE, FASTING 111 MG/DL (74-106); HDL CHOLESTEROL 36.4 MG/DL (>40); LDL CHOLESTEROL 89.4 MG/DL (<100); NON-HDL-C 112.6 MG/DL; POTASSIUM SERUM 4.8 MMOL/L (3.5-5.1); PSA SCREENING 0.41 NG/ML (< 4.00); SODIUM LEVEL 136 MMOL/L (136-145); TOTAL PROTEIN 6.9 G/DL (5.7-8.2); TRIGLYCERIDES LEVEL 116 MG/DL (<150)
[2023-08-18 19:29] LABS: THYROID STIMULATING HORMONE 1.738 uIU/ML (0.55-4.78)
== END ==
LOC: M SFHCCLAY 09:44
PROVIDERS: ATTEND Family Medicine
DX: E78.5 Hyperlipidemia, unspecified (principal); K21.9 Gastro-esophageal reflux disease without esophagitis; Z12.5 Encounter for screening for malignant neoplasm of prostate; E55.9 Vitamin D deficiency, unspecified; R20.3 Hyperesthesia; K59.00 Constipation, unspecified
CPT/HCPCS: 80053; 80061; 82652; 83735; 84443; 85027; G0103

== ENCOUNTER → 2024-05-03 | Outpatient (CLI) | payer MEDICARE, BC | LOC: M PLAIMG 12:55 | PROVIDERS: ATTEND Family Medicine | DX: R22.1 Localized swelling, mass and lump, neck (principal) ==

== ENCOUNTER → 2024-07-22 | Outpatient (CLI) | payer MEDICARE, BC | LOC: M RAD 09:46 | PROVIDERS: ATTEND Family Medicine | DX: F17.210 Nicotine dependence, cigarettes, uncomplicated (principal); Z72.0 Tobacco use ==

== ENCOUNTER → 2024-08-20 | Outpatient (REF) | payer MEDICARE, BC ==
[2024-08-20 18:50] LABS: HEMATOCRIT 41.6 % (42.0-52.0); HEMOGLOBIN 14.3 g/dl (13.5-17.5); MEAN CORPUSCULAR HEMOGLOBIN 32.1 pg (27.0-33.0); MEAN CORPUSCULAR HGB CONC 34.4 g/dl (32.0-36.5); MEAN CORPUSCULAR VOLUME 93.5 fl (80.0-96.0); PLATELET COUNT, AUTOMATED 243 10^3/uL (150-450); RED BLOOD COUNT 4.45 10^6/uL (4.30-6.10); WHITE BLOOD COUNT 9.1 10^3/uL (4.0-10.0)
[2024-08-20 19:10] LABS: HEMOGLOBIN A1c 5.7 % (4.0-6.0)
[2024-08-20 19:18] LABS: ALBUMIN 3.9 G/DL (3.2-5.2); ALKALINE PHOSPHATASE 122 U/L (40-129); ALT/SGPT 53 U/L (7.0-40); AST/SGOT 37 U/L (<34); BILIRUBIN,TOTAL 0.3 MG/DL (0.3-1.2); BLOOD UREA NITROGEN 20 MG/DL (9-23); CARBON DIOXIDE LEVEL 30 MMOL/L (20-31); CHLORIDE LEVEL 103 MMOL/L (98-107); CHOLESTEROL LEVEL 140 MG/DL (<200); CHOLESTEROL RISK RATIO 3.64 (<5); CREATININE FOR GFR 0.94 MG/DL (0.70-1.30); GLOMERULAR FILTRATION RATE > 60.0 (>42); GLUCOSE, FASTING 86 MG/DL (74-106); HDL CHOLESTEROL 38.4 MG/DL (>40); LDL CHOLESTEROL 68.6 MG/DL (<100); NON-HDL-C 101.6 MG/DL; POTASSIUM SERUM 4.6 MMOL/L (3.5-5.1); SODIUM LEVEL 142 MMOL/L (136-145); TOTAL PROTEIN 7.5 G/DL (5.7-8.2); TRIGLYCERIDES LEVEL 165 MG/DL (<150)
== END ==
LOC: M SFHCCLAY 14:21
PROVIDERS: ATTEND Family Medicine
DX: K59.00 Constipation, unspecified (principal); K21.9 Gastro-esophageal reflux disease without esophagitis; E78.5 Hyperlipidemia, unspecified; R73.01 Impaired fasting glucose